=== PATIENT | male | born 1990 ===

== ENCOUNTER 2018-01-25 23:11 | Emergency (ER) | payer SELFPAY ==
[~2018-01-25] VITALS: Ht 180.3 cm; Wt 90.7 kg
--- NOTE | 2018-01-25 23:30 | NUR ---
Dr. Patricia at bedside for MSE.
[2018-01-25] MEDS ORDERED: KETOROLAC TROMETHAMINE 60 MG INJ IM ONE ×2 (23:45→23:48)
[2018-01-25] MEDS ORDERED: CYCLOBENZAPRINE HCL 10 MG TABLET PO ONE (23:45)
[2018-01-25] MEDS ORDERED: CYCLOBENZAPRINE HCL 10 MG TABLET ONE (23:48)
[2018-01-25] MEDS ORDERED: ONDANSETRON ODT 4 MG TAB.RAPDIS ONE (23:50)
--- NOTE | 2018-01-25 23:57 | NUR ---
Pt out of ER for CT.
[2018-01-26] MEDS ORDERED: ONDANSETRON ODT 4 MG TAB.RAPDIS SL ONE
--- NOTE | 2018-01-26 00:06 | NUR ---
Pt back to ER from CT via wheelchair.
--- NOTE | 2018-01-26 00:55 | NUR ---
Patient discharged to home in stable conditon. Written and verbal after care instructions given. Patient verbalizes understanding of instructions. Patient ambulated out of ER with steady gait, VSS, no acute signs of distress, all belongings taken.
[2018-01-26 01:10] VITALS: BP 124/79
== END 2018-01-26 00:55 | disposition home or self-care (01) ==
LOC: ER 23:11
DX: S16.1XXA Strain of muscle, fascia and tendon at neck level, initial encounter (principal); G44.209 Tension-type headache, unspecified, not intractable; M54.5 Low back pain; F17.210 Nicotine dependence, cigarettes, uncomplicated; V43.52XA Car driver injured in collision with other type car in traffic accident, initial encounter; Y93.89 Activity, other specified; Y92.410 Unspecified street and highway as the place of occurrence of the external cause; Y99.8 Other external cause status
CPT/HCPCS: 72125; 96372; 99284; A4663; J1885; Q0162

== ENCOUNTER 2023-08-14 00:39 | Emergency (ER) | payer SELFPAY ==
[~2023-08-14] VITALS: Ht 180.3 cm; Wt 68.0 kg
[2023-08-14 01:26] LABS: BASOPHILS % (AUTO) 0.4 % (0.0-2.0); DIFFERENTIAL COMMENT 1; EOSINOPHILS # (AUTO) 0.2 K/uL (0.0-0.7); EOSINOPHILS % (AUTO) 1.4 % (0.0-7.0); HEMATOCRIT 42.3 % (36.7-47.1); HEMOGLOBIN 14.2 g/dL (12.5-16.3); LYMPHOCYTES # (AUTO) 3.6 K/uL (0.8-4.8); LYMPHOCYTES % (AUTO) 30.7 % (20.5-51.5); MEAN CORPUSCULAR HEMOGLOBIN 29.8 uug (23.8-33.4); MEAN CORPUSCULAR HGB CONC 34 g/dL (32.5-36.3); MEAN CORPUSCULAR VOLUME 88.6 fL (73.0-96.2); MONOCYTES # (AUTO) 0.6 K/uL (0.1-1.30); MONOCYTES % (AUTO) 5.2 % (0.0-11.0); NEUTROPHILS # (AUTO) 7.3 K/uL (1.8-8.9); NEUTROPHILS % (AUTO) 62.3 % (38.5-71.5); PLATELET COUNT (AUTO) 255 K/uL (152-348); RED BLOOD CELL COUNT(AUTO) 4.77 MIL/uL (4.06-5.63); RED CELL DISTRIBUTION WIDTH 13.1 % (12.1-16.2); WHITE BLOOD COUNT (AUTO) 11.6 K/uL (3.6-10.2)
[2023-08-14] MEDS ORDERED: KETOROLAC TROMETHAMINE 30 MG INJ ONE (01:27)
[2023-08-14] MEDS ORDERED: KETOROLAC TROMETHAMINE 30 MG INJ IVP ONE (01:30)
[2023-08-14] MEDS ORDERED: IV NS 1000 ML 1,000 ML IV ONE (01:30)
[2023-08-14 01:32] LABS: *BILIRUBIN,URIN NEGATIVE (NEGATIVE); *BLOOD, URINE NEGATIVE (NEGATIVE); *CLARITY,URINE CLEAR (CLEAR); *COLOR,URINE YELLOW (YELLOW); *KETONES,URINE NEGATIVE (NEGATIVE); *PROTEIN,URINE NEGATIVE (NEGATIVE); *UROBILINOGEN,URINE 0.2 E.U./dl (NORMAL); LEUKOCYTE ESTERASE ,URINE NEGATIVE (NEGATIVE); NITRITE, URINE NEGATIVE (NEGATIVE); PH,URINE 6.5 (5.0-8.0); UGLUCOSE NEGATIVE (NEGATIVE)
[2023-08-14 01:44] LABS: ALBUMIN 3.8 g/dL (3.4-5.0); BILIRUBIN,DIRECT 0.1 mg/dL (0.0-0.2); BILIRUBIN,TOTAL 0.2 mg/dL (0.2-1.0); CALCIUM 9.1 mg/dL (8.5-10.1); POTASSIUM 3.7 mmol/L (3.5-5.1); TOTAL PROTEIN, SERUM 7.3 g/dL (6.4-8.2)
[2023-08-14] MEDS ORDERED: IOHEXOL 300MG/ML 100 ML INFUS..BTL ONE (02:27)
[2023-08-14] MEDS ORDERED: SWABABLE VALVE TRANSFER SET EA MC ONE (02:27)
[2023-08-14] MEDS ORDERED: IV NORMAL SALINE 250 ML IV ONE (02:28)
[2023-08-14] MEDS ORDERED: HYDROMORPHONE 1 MG/1 ML DISP.SYRIN ONE (03:42)
[2023-08-14] MEDS ORDERED: HYDROMORPHONE 1 MG/1 ML DISP.SYRIN IV ONE (03:45)
[2023-08-14] MEDS ORDERED: ONDANSETRON 4 MG/2 ML VIAL ONE (04:44)
[2023-08-14] MEDS ORDERED: ONDANSETRON 4 MG/2 ML VIAL IV ONE (04:45)
[2023-08-14] MEDS ORDERED: PHEN26CR2 RC (06:01)
[2023-08-14 06:22] VITALS: BP 112/68; TEMP 97.5; O2SAT 99
== END 2023-08-14 06:23 | disposition home or self-care (01) ==
LOC: ER 00:43
DX: K62.5 Hemorrhage of anus and rectum (principal); F17.210 Nicotine dependence, cigarettes, uncomplicated
CPT/HCPCS: 99285; 74177; 96374; 96375; 96361; 80076; 80048; 81003; 83690; 85025; 36415; J1885; J2405; Q9967; J1170; J7040; A4663